=== PATIENT | female | born 1975 ===

== ENCOUNTER 2018-11-07 21:04 | Emergency (ER) | payer SELFPAY ==
[2018-11-07 22:02] VITALS: BP 118/82; PULSE 86; RESP 20; TEMP 99.2; O2SAT 99
--- NOTE | 2018-11-07 23:08 | C.PDOC ---
History Of Present Illness 43 year old female presents complaining of right foot pain after she missed a step and twisted her right ankle 12 days ago. Patient reports she has been able to ambulate, she has been applying ice and vaporub but pain persists. Denies weakness or numbness. Time Seen by Provider: 11/07/18 21:53 Chief Complaint (Nursing): Lower Extremity Problem/Injury History Per: Patient History/Exam Limitations: no limitations Onset/Duration Of Symptoms: Days Current Symptoms Are (Timing): Still Present Recent travel outside of the [place] States: No - Ankle/Foot Description Of Injury: Twisted Past Medical History Reviewed: Historical Data, Nursing Documentation, Vital Signs Vital Signs: Last Vital Signs Temp 99.2 F 11/07/18 21:42 Pulse 86 11/07/18 21:42 Resp 20 11/07/18 21:42 BP 118/82 11/07/18 21:42 Pulse Ox 99 11/07/18 21:42 Primary Care Provider: Non [facility] Provider, Family History: States: Unknown Family Hx - Social History Hx Alcohol Use: No Hx Substance Use: No Review Of Systems Musculoskeletal: Positive for: Foot Pain (Right) Neurological: Negative for: Weakness, Numbness Physical Exam - Physical Exam Appears: Non-toxic Skin: Normal Color, Warm Head: Atraumatic, Normacephalic Eye(s): bilateral: Normal Inspection Extremity: Normal ROM (x4), Capillary Refill (<2 seconds), Other (Tenderness to proximal dorsal right foot, no swelling or ecchymosis) Pulses: Left Dorsalis Pedis: Normal, Right Dorsalis Pedis: Normal Neurological/Psych: Oriented x3, Normal Speech, Normal Motor, Normal Sensation Gait: Steady (antalgic gait) ED Course And Treatment O2 Sat by Pulse Oximetry: 99 (Room air) Pulse Ox Interpretation: Normal - Other Rad Right foot x-ray X-Ray: Interpreted by Me, Viewed By Me Interpretation: No acute fracture or dislocation Progress Note: X-ray was negative. Patient is resting comfortably in no acute distress, ambulatory with steady gait, vitals are stable, will discharge home with instructions to follow up with podiatry. Disposition Counseled Patient/Family Regarding: Diagnosis, Need For Followup, Rx Given - Disposition Referrals: Podiatry Clinic [Outside] [facility] [Outside] Disposition: HOME/ ROUTINE Disposition Time: 23:04 Condition: STABLE Additional Instructions: Please follow up with Podiatry clinic Take motrin as directed Leg elevation Return to ER if worse Instructions: Foot Sprain (DC) Forms: [employer] (Hungarian) - Clinical Impression Clinical Impression: Sprain of foot, right - PA / ACCOUNT RECEIVABLE ASSOCIATE / Resident Statement MD/DO has reviewed & agrees with the documentation as recorded. - Scribe Statement The provider has reviewed the documentation as recorded by the Scribles Lay All medical record entries made by the Pankajibles were at my direction and personally dictated by me. I have reviewed the chart and agree that the record accurately reflects my personal performance of the history, physical exam, medical decision making, and the department course for this patient. I have also personally directed, reviewed, and agree with the discharge instructions and disposition.
--- NOTE | 2018-11-08 10:33 | RAD ---
Date of service: 11/07/2018 PROCEDURE: Right Foot Radiographs. HISTORY: fall, pain to proximal foot, missed step 12 d ago COMPARISON: None. TECHNIQUE: 3 views obtained. FINDINGS: BONES: No fracture. Plantar calcaneal spur noted. No lytic or blastic osseous lesion. JOINTS: Normal. SOFT TISSUES: Normal. OTHER FINDINGS: None. IMPRESSION: No acute fracture.
== END 2018-11-07 23:16 | disposition home or self-care (01) ==
LOC: C.ER 21:04
DX: S93.601A Unspecified sprain of right foot, initial encounter (principal); W10.9XXA Fall (on) (from) unspecified stairs and steps, initial encounter